=== PATIENT | male | born 1940 | race Caucasian/White ===

== ENCOUNTER → 2019-07-31 | Outpatient (CLI) | payer MEDICARE | END | disposition home or self-care (01) | LOC: LABPAT 08:00 | PROVIDERS: ATTEND Internal Medicine Clinical Cardiac Electrophysiology | DX: Z53.9 Procedure and treatment not carried out, unspecified reason (principal) ==

== ENCOUNTER → 2019-07-31 | Outpatient (CLI) | payer MEDICARE | END | disposition home or self-care (01) | CPT/HCPCS: 36415; 80048; 82533; 82550; 83735; 84439; 84443; 84481; 84482; 85025 ==

== ENCOUNTER → 2019-10-06 | Outpatient (CLI) | payer MEDICARE | END | disposition home or self-care (01) | LOC: LABWHC1 12:31 | PROVIDERS: ATTEND Internal Medicine Clinical Cardiac Electrophysiology | DX: Z11.59 Encounter for screening for other viral diseases (principal) | CPT/HCPCS: 87635 ==

== ENCOUNTER 2019-10-11 08:35 | Day surgery (SDC) | payer MEDICARE ==
[2019-10-10 11:07] VITALS: BMI 28.5
[~2019-10-11 08:35] MED LIST: LACTATED RINGERS 1,000 ML IV SCH; SODIUM CHLORIDE 0.9% 1,000 ML IV SCH
[2019-10-11 09:12] LABS: Basophils % (A) 1 %; Eosinophils # (A) 0.1 k/uL (0-0.7); Eosinophils % (A) 1 %; HCT 44.6 % (39.0-53.0); HGB 15.2 gm/dL (13.0-17.5); Lymphocytes # (A) 0.9 k/uL (1.0-4.8); Lymphocytes % (A) 15 %; MCH 32.5 pg (25.0-35.0); MCV 95.6 fL (80.0-100.0); Mean Platelet Volume 7.7; Monocytes # (A) 0.4 k/uL (0-1.0); Monocytes % (A) 7 %; Neutrophils # (A) 4.4 k/uL (1.3-7.7); Neutrophils % (A) 75 %; Platelet Count 195 k/uL (150-450); RBC 4.66 m/uL (4.30-5.90); RDW 12.8 % (11.5-15.5); WBC 5.8 k/uL (3.8-10.6)
[2019-10-11 09:24] LABS: Calcium 9.2 mg/dL (8.4-10.2); Potassium 4.5 mmol/L (3.5-5.1)
[2019-10-11] MEDS ORDERED: HEPARIN SODIUM,PORCINE 10,000 UNIT/ML 1 ML VIAL ONE (10:07)
[2019-10-11] MEDS ORDERED: PHENYLEPHRINE-0.9% NACL SYG 1 MG/10 ML SYRINGE ONE (10:07)
[2019-10-11] MEDS ORDERED: NEOSTIGMINE 1 MG/ML 10 ML VIAL ONE (10:07)
[2019-10-11] MEDS ORDERED: MIDAZOLAM 2 MG/2 ML VIAL ONE (10:07)
[2019-10-11] MEDS ORDERED: ePHEDrine SULFATE/0.9% NACL/PF 50 MG/5 ML SYRINGE IV ONE (10:07)
[2019-10-11] MEDS ORDERED: SUCCINYLCHOLINE CHLORIDE 100 MG/5 ML SYR IV ONE (10:07)
[2019-10-11] MEDS ORDERED: LIDOCAINE 1% INJ 10MG/ML (20 ML MDV) ONE (10:07)
[2019-10-11] MEDS ORDERED: fentaNYL (PF) 50 MCG/ML 2 ML AMP ONE (10:07)
[2019-10-11] MEDS ORDERED: PROPOFOL 10 MG/ML 20 ML VIAL IV ONE (10:07)
[2019-10-11] MEDS ORDERED: PROTAMINE SULFATE 10 MG/ML 5 ML VIAL IV ONE (10:07)
[2019-10-11] MEDS ORDERED: GLYCOPYRROLATE 0.2 MG/ML 2 ML VIAL ONE (10:07)
[2019-10-11] MEDS ORDERED: LIDOCAINE 1% INJ 10MG/ML (20 ML MDV) SQ ONE (11:06)
[2019-10-11] MEDS ORDERED: HEPARIN SOD,PORK IN 0.45% NACL 25,000 UNIT in 0.45% NACL 1 250ML.BAG IV ONE (11:07)
[2019-10-11] MEDS ORDERED: HEPARIN SODIUM (1,000 UNIT/ML) 1,000 UNIT in SODIUM CHLORIDE 0.9% 1,000 ML IRRIGATION ONE (13:39)
[2019-10-11] MEDS ORDERED: LACTATED RINGERS 1,000 ML IV ONE (13:39)
[2019-10-11] MEDS ORDERED: IOPAMIDOL-370 50ML BTL INJ ONE (15:03)
[2019-10-11] MEDS ORDERED: ACETAMINOPHEN IV (For NPO) 1,000 MG in EMPTY BAG 1 BAG IVPB ONE (16:13)
[2019-10-11] MEDS ORDERED: ACETAMINOPHEN TAB 325 MG TAB PO PRN (16:13)
[2019-10-11] MEDS ORDERED: HYDROcodone/APAP 5-325MG 1 EACH TAB PO PRN (16:13)
[2019-10-11] MEDS ORDERED: FUROSEMIDE 20 MG TAB PO PRN (16:17)
--- NOTE | 2019-10-11 16:32 | P.PCN ---
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 Congestive heart failure Result No left atrial appendage mass seen on intracardiac echo Successful pulmonary vein isolation of all veins using cryo-ablation Complete entrance block in all 4 veins confirmed No evidence for phrenic nerve injury Esophageal deflection YES , extreme left-sided esophagus Linear ablation along the roof, linear ablation along the anterior septum with organization of atrial fibrillation Electrical cardioversion with a synchronized shock across the chest YES Successful conversion to sinus rhythm Large left atrium, common left antrum of the left-sided pulmonary veins Procedure details Patient was brought to the EP lab in a fasting state. Written informed consent was obtained prior to the procedure. Procedure performed under general anesthesia After initial muscle relaxant use, muscle relaxants were not given thereafter in order to assess phrenic nerve during procedure. Patient prepped and draped as per protocol Full cryo-set up with standard preparation of the cryoablation tools done. Femoral Venous access obtained on the right and left groins Venous and arterial Sheaths placed. Diagnostic catheters for the high right atrium, phrenic nerve stimulation and pacing, His bundle, RV and coronary sinus placed Intracardiac echo catheter placed. Long sheath placed in the right atrium Left and right transseptal catheterization performed under intracardiac echo evelina dance. Intravenous heparin with aCT above 300 Later, catheter positioning and balloon positioning in the left atrium, under intracardiac echo guidance Diagnostic EP study with mapping Coronary sinus pacing and recording Organization of atrial fibrillation with stepwise ablations Baseline measurements sinus cycle length 605 ms, AR interval 161 ms, QRS 123 ms, QT 397 with Transseptal catheterization performed RA pressure 17/3/8 LA pressure 15/5/10 Transseptal catheterization performed with standard sheath. The cryoablation sheath was then placed with an over the wire exchange without any acute complications. All 4 pulmonary veins were isolated in the following sequence: Left superior followed by left inferior followed by right superior followed by right inferior The cryo-ablation balloon was placed at the os of each vein 1.5 mL of IV dye was injected to confirm an occluded vein Goal during cryoablation was to achieve complete occlusion of the pulmonary vein, achieve -30 degrees C at 30 seconds and achieve -40 degrees C at 60 seconds and a time to effect of less than 60-90 seconds, . If not the balloon was repositioned to obtain this result After completion of Cryoblation with durations from 180-240 seconds, entrance block was confirmed with the Attain circular catheter in a roving fashion around the antrum of the pulmonary veins Phrenic nerve pacing was performed from the SVC, right innominate vein area and diaphragm voltage was monitored. Diaphragmatic contractions were also monitored manually for strength of contraction. Parameter goals for each cryo freeze Complete occlusion of the appropriate vein -30 degrees C by 30 seconds -40 degrees C by 60 seconds Minimum between minus 40-55 degrees C Thaw time greater than 10 seconds Balloon visualized by intracardiac echo The esophagus was intubated. Esophageal Temperature monitoring with a CIRCA catheter formed. Esophageal deflection for hypothermia of the esophagus below 30 degrees C Left superior pulmonary vein, common left-sided antrum with large veins Complete isolation, entrance block Left inferior pulmonary vein, common left-sided antrum with large veins Complete isolation, entrance block Right superior pulmonary vein, during phrenic nerve pacing Complete isolation, entrance block Right inferior pulmonary vein, during phrenic nerve pacing Complete isolation, entrance block At the end of the procedure the Achieve catheter was once again used to check for entrance block Phrenic nerve stimulation was performed to confirm diaphragmatic stimulation the end of the procedure Cine fluoroscopy was performed at the very end of the procedure to confirm movement of both diaphragms with inspiration and expiration Complete isolation of the pulmonary veins was documented first with the achieve catheter and later with electrograms mapping and scar mapping These were large pulmonary veins but were completely isolated Following that the septal RF line was made from the roof down to the inferior the right pulmonary vein at at 6 o'clock position RF ablation was also applied along the antrum of the right sided veins posteriorly Thereafter a roof line was made Complete anatomic integrity of the roof line was confirmed The segment between the isolated pulmonary veins on the right side and septal line was also completely quiescent At the end of the procedure the patient was extubated Heparin was reversed Venous sheaths were removed and hemostasis assured Procedures performed (PVI - followed by linear ablation in the left atrial roof and linear ablation along the septum anteriorly Diagnostic EP study CS pacing and recording Left and right transseptal catheterization Catheter the mapping of the tachycardia (NOT 3D mapping) Intracardiac echocardiography Pulmonary vein isolation with transseptal and comprehensive EPS, [id number] Left atrial roof line, +[id number] Linear ablation, left atrium, along the anterior septum, between the right-sided pulmonary veins and the fossa ovalis +[id number] RF ablation was also applied posteriorly in the duglas between the right-sided pulmonary veins Electrical cardioversion with a synchronized shock across the chest 15901
[2019-10-11] MEDS ORDERED: TAMSULOSIN 0.4 MG CAP.ER.24H PO SCH (21:00)
[2019-10-11] MEDS: APIXABAN 5 MG TAB PO SCH (21:34)
[2019-10-11] MEDS: SACUBITRIL/VALSARTAN 24 MG-26 MG TABLET PO SCH (21:34)
[2019-10-11] MEDS: COLCHICINE 0.6 MG EACH PO SCH (23:00)
[2019-10-12] MEDS ORDERED: LEVOTHYROXINE 112 MCG TAB PO SCH (06:30)
[2019-10-12] MEDS ORDERED: CARVEDILOL 3.125 MG TAB PO SCH (07:30)
[2019-10-12] MEDS: COLCHICINE 0.6 MG EACH PO SCH (08:16)
[2019-10-12] MEDS: SACUBITRIL/VALSARTAN 24 MG-26 MG TABLET PO SCH (08:16)
[2019-10-12] MEDS: APIXABAN 5 MG TAB PO SCH (08:22)
[2019-10-12] MEDS ORDERED: SPIRONOLACTONE 25 MG TAB PO SCH (09:00)
[2019-10-12 12:10] VITALS: BP 95/60; PULSE 70; RESP 16; TEMP 98.5
--- NOTE | 2019-10-12 13:44 | P.DS ---
Providers Attending physician: Kyler Hampton Primary care physician: [facility] Hospital Course: This is a pleasant 79-year-old male past medical history significant for atrial fibrillation, cardiomyopathy and chronic congestive heart failure. He presented to the hospital for an elective A. fib ablation. He underwent successful pulmonary vein isolation using cryoablation, complete entrance block and all 4 veins confirmed and no evidence for phrenic nerve injury. He is seen and examined resting comfortably laying flat in no acute distress he has no symptoms of chest pain, shortness of breath, dizziness or palpitations bilateral groin access sites are clean, dry and intact. There is no evidence of hematoma, bleeding or ecchymosis. Sutures were removed bilaterally. Blood pressure 95/60 heart rate 70 afebrile maintaining oxygen saturation on room air. Throughout hospitalization he has been minimally hypotensive however asymptomatic. We will change his carvedilol to Toprol 50 mg daily. We have advised him to take half a pill in the morning, with plans to increase as he tolerates in the office. Repeat EKG this morning reveals sinus mechanism with no ST abnormalities or evidence of pericarditis. GENERAL: Well-appearing, well-nourished and in no acute distress. NECK: Supple without JVD or thyromegaly. LUNGS: Breath sounds clear to auscultation bilaterally. Respiration equal and unlabored. No wheezes, rales or rhonchi. HEART: Regular rate and rhythm without murmurs, rubs or gallops. S1 and S2 heard. EXTREMITIES: Normal range of motion, no edema. No clubbing or cyanosis. Peripheral pulses intact. Bilateral groins soft, non-tender, no ecchymosis, no hematoma, no bleeding. Sutures removed bilaterally intact. ASSESSMENT Atrial fibrillation status post successful ablation PLAN Discontinue carvedilol. Initiate on Toprol 50 mg in the morning, take half tablet. We will increase in the office at follow-up if he can tolerate. Continue eliquis, aldactone, entresto, lasix as previously ordered. Follow-up the office with Dr. Arenas next week October 19 at 1:30 pm. Nurse Practitioner note has been reviewed, I agree with a documented findings and plan of care. Patient was seen and examined. Plan - Discharge Summary Discharge Rx Participant: No New Discharge Prescriptions: New Metoprolol Succinate (ER) [Toprol XL] 50 mg PO DAILY #90 tab.er.24h Continue Multivitamins, Thera [Multivitamin (formulary)] 1 tab PO DAILY Cetirizine HCl [Zyrtec] 10 mg PO HS Cholecalciferol [Vitamin D3 (25 Mcg = 1000 Iu)] 1,000 unit PO DAILY Apixaban [Eliquis] 5 mg PO BID busPIRone HCL 15 mg PO DAILY Spironolactone [Aldactone] 25 mg PO DAILY Levothyroxine Sodium [Synthroid] 112 mcg PO DAILY Furosemide [Lasix] 20 mg PO DAILY Furosemide [Lasix] 20 mg PO DAILY PRN PRN Reason: SWELLING Sacubitril/Valsartan [Entresto 24 mg-26 mg Tablet] 1 each PO BID Melatonin 10 mg PO HS Cyanocobalamin (Vitamin B-12) [Vitamin B-12] 1,000 mcg PO Q2D Alfuzosin HCl [Alfuzosin HCl ER] 10 mg PO HS Discontinued Carvedilol [Coreg] 3.125 mg PO BID Discharge Medication List Alfuzosin HCl [Alfuzosin HCl ER] 10 mg PO HS 10/10/19 [History] Apixaban [Eliquis] 5 mg PO BID 10/10/19 [History] Cetirizine HCl [Zyrtec] 10 mg PO HS 10/10/19 [History] Cholecalciferol [Vitamin D3 (25 Mcg = 1000 Iu)] 1,000 unit PO DAILY 10/10/19 [History] Cyanocobalamin (Vitamin B-12) [Vitamin B-12] 1,000 mcg PO Q2D 10/10/19 [History] Furosemide [Lasix] 20 mg PO DAILY 10/10/19 [History] Furosemide [Lasix] 20 mg PO DAILY PRN 10/10/19 [History] Levothyroxine Sodium [Synthroid] 112 mcg PO DAILY 10/10/19 [History] Melatonin 10 mg PO HS 10/10/19 [History] Multivitamins, Thera [Multivitamin (formulary)] 1 tab PO DAILY 10/10/19 [History] Sacubitril/Valsartan [Entresto 24 mg-26 mg Tablet] 1 each PO BID 10/10/19 [History] Spironolactone [Aldactone] 25 mg PO DAILY 10/10/19 [History] busPIRone HCL 15 mg PO DAILY 10/10/19 [History] Metoprolol Succinate (ER) [Toprol XL] 50 mg PO DAILY #90 tab.er.24h 10/12/19 [Rx] Follow up Appointment(s)/Referral(s): Kyler Hampton MD [STAFF PHYSICIAN] - 1 Week Patient Instructions/Handouts: *Surgery [facility] - After Heart Catheterization - [employer] Instructions, Metoprolol (By mouth), Cardiac Ablation (DC) Activity/Diet/Wound Care/Special Instructions: Okay to have MRI on Wednesday of this week per Alicia Valle NP (cardiology)
[2019-10-13] MEDS ORDERED: METOPROLOL SUCCINATE (ER) 50 MG TAB.ER.24H PO SCH (09:00)
== END 2019-10-12 14:06 | disposition home or self-care (01) ==
LOC: CATHEP 08:35 → 5NMEDONC 15:08 → CATHEP 10-12 14:06
PROVIDERS: ATTEND Internal Medicine Clinical Cardiac Electrophysiology
DX: I48.19 Other persistent atrial fibrillation (principal); I42.8 Other cardiomyopathies; I50.9 Heart failure, unspecified; I95.9 Hypotension, unspecified; G47.33 Obstructive sleep apnea (adult) (pediatric); Z99.89 Dependence on other enabling machines and devices; I73.9 Peripheral vascular disease, unspecified; Z82.49 Family history of ischemic heart disease and other diseases of the circulatory system; Z79.01 Long term (current) use of anticoagulants; Z79.890 Hormone replacement therapy; Z79.899 Other long term (current) drug therapy
CPT/HCPCS: 93005; 85347; 93662; 93609; 93656; 93657; 80048; 85025; C1769 ×4; C1894 ×2; C1730; C1893; C1733; C1766; C1732; J2250; J2720; J1644 ×3; J2710; J2001; J3010; J2370; J0330; J2704; Q9967; 93613

== ENCOUNTER → 2023-03-26 | Outpatient (CLI) | payer MEDICARE ==
[2023-03-26 11:14] LABS: ALT 27 U/L (4-49); AST 27 U/L (17-59); African American GFR (CKD) >90 (>60 ml/min/1.73 sqM); Albumin 4.6 g/dL (3.5-5.0); Albumin/Globulin Ratio 1.5; Alkaline Phosphatase 79 U/L (38-126); Anion Gap 8 mmol/L; Blood Urea Nitrogen 20 mg/dL (9-20); Calcium 9.8 mg/dL (8.4-10.2); Carbon Dioxide 28 mmol/L (22-30); Chloride 102 mmol/L (98-107); Glucose 99 mg/dL (74-99); Non-African American GFR(CKD) 82 (>60 ml/min/1.73 sqM); Partial Thromboplastin Time 28.3 sec (22.0-30.0); Prothrombin Time 11.1 sec (10.0-12.5); Sodium 138 mmol/L (137-145); Total Bilirubin 0.9 mg/dL (0.2-1.3); Total Protein 7.6 g/dL (6.3-8.2)
[2023-03-26 11:23] LABS: NT-Pro-B-Type Natriuretic Pept 86 pg/mL
[2023-03-26 16:35] LABS: Appearance,Urine Clear (Clear); Bilirubin,Urine Negative (Negative); Blood,Urine Negative (Negative); Color,Urine Yellow (Yellow); Ketones,Urine Negative (Negative); Nitrite,Urine Negative (Negative); PH, Urine 5.5; Specific Gravity,Urine 1.018 (1.001-1.030); Urobilinogen,Urine 0.2 E.U./DL
[2023-03-26 16:42] LABS: Basophils # (A) 0.05 X 10*3/uL (0.00-0.10); Basophils % (A) 0.8 %; Eosinophils # (A) 0.04 X 10*3/uL (0.04-0.35); Eosinophils % (A) 0.6 %; HCT 44.7 % (39.6-50.0); HGB 14.9 g/dL (13.0-17.0); Lymphocytes # (A) 0.95 X 10*3/uL (0.90-5.00); Lymphocytes % (A) 14.4 %; MCH 31.5 pg (27.0-32.0); MCHC 33.3 g/dL (32.0-37.0); MCV 94.5 FL (80.0-97.0); Mean Platelet Volume 10.5 FL (9.5-12.2); Monocytes # (A) 0.56 X 10*3/uL (0.20-1.00); Monocytes % (A) 8.5 %; NRBC Per 100 WBC 0 X 10*3/uL (0.00-0.01); Neutrophils # (A) 4.96 X 10*3/uL (1.80-7.70); Neutrophils % (A) 75.2 %; Platelet Count 192 X 10*3/uL (140-440); RBC 4.73 X 10*6/uL (4.40-5.60); RDW 12.6 % (11.5-14.5); WBC 6.59 X 10*3/uL (4.50-10.00)
== END | disposition home or self-care (01) ==
LOC: LABPAT 08:44
PROVIDERS: ATTEND Orthopaedic Surgery Sports Medicine
DX: Z01.812 Encounter for preprocedural laboratory examination (principal); M19.012 Primary osteoarthritis, left shoulder
CPT/HCPCS: 80053; 81003; 83735; 83880; 84443; 85025; 85610; 85730; 87070

== ENCOUNTER → 2023-03-26 | Outpatient (CLI) | payer MEDICARE ==
--- NOTE | 2023-03-26 10:43 | XR ---
EXAMINATION TYPE: XR chest 2V DATE OF EXAM: 03/26/2023 10:39 AM COMPARISON: None TECHNIQUE: XR chest 2V Frontal and lateral views of the chest. CLINICAL INDICATION:Male, 82 years old with history of CHF; FINDINGS: Lungs/Pleura: There is no evidence of pleural effusion, focal consolidation, or pneumothorax. Pulmonary vascularity: Unremarkable. Heart/mediastinum: Cardiomediastinal silhouette is prominent in size. Atherosclerotic calcifications are seen in the aorta. Musculoskeletal: Multiple level degenerative disc disease changes seen throughout the spine. IMPRESSION: No acute cardiopulmonary disease/process.
== END | disposition home or self-care (01) ==
LOC: LABWHC1 08:48
PROVIDERS: ATTEND Family Medicine
DX: I48.0 Paroxysmal atrial fibrillation (principal); I50.22 Chronic systolic (congestive) heart failure
CPT/HCPCS: 71046; 86850; 86900; 86901

== ENCOUNTER 2023-04-15 09:34 | Day surgery (SDC) | payer MEDICARE ==
[~2023-04-15 09:34] MED LIST changes: +ACETAMINOPHEN TAB 500 MG TAB PO PRN; +GABAPENTIN 300 MG CAP PO PRN; +HYDROmorphone 0.5 MG/0.5 ML SYRINGE IVP PRN; +MELOXICAM 7.5 MG TAB PO PRN; +ONDANSETRON 4 MG/2 ML VIAL IVP ONE; +ONDANSETRON 4 MG/2 ML VIAL IVP PRN; -SODIUM CHLORIDE 0.9% 1,000 ML IV SCH; +TRANEXAMIC 1,000 MG/100ML-NACL 1,000 MG in SALINE 1 100ML.BAG IVPB PRN
[2023-04-15] MEDS ORDERED: diphenhydrAMINE 25 MG CAP PO PRN (10:39)
[2023-04-15] MEDS ORDERED: ONDANSETRON 4 MG/2 ML VIAL IVP PRN (10:39)
[2023-04-15] MEDS ORDERED: SENNOSIDES-DOCUSATE SODIUM 1 EACH TAB PO PRN (10:39)
[2023-04-15] MEDS ORDERED: HYDROmorphone 0.5 MG/0.5 ML SYRINGE IVP PRN ×3 (10:39)
[2023-04-15] MEDS ORDERED: DEXAMETHASONE SOD PHOSPHATE 4 MG/ML 1 ML VIAL IVP ONE (10:40)
[2023-04-15] MEDS ORDERED: HYDROcodone/APAP 7.5-325MG 1 EACH TAB PO PRN ×2 (10:43)
[2023-04-15] MEDS ORDERED: fentaNYL (PF) 50 MCG/ML 2 ML AMP IVP ONE (10:47)
[2023-04-15] MEDS ORDERED: MIDAZOLAM 2 MG/2 ML VIAL IVP ONE (10:47)
[2023-04-15] MEDS ORDERED: VANCOMYCIN 1,000 MG VIAL MISCELLANE ONE (11:59)
[2023-04-15] MEDS ORDERED: fentaNYL (PF) 50 MCG/ML 2 ML AMP ONE (12:41)
[2023-04-15] MEDS ORDERED: TRANEXAMIC 1,000 MG/100ML-NACL PREMIX BAG ONE (12:41)
[2023-04-15] MEDS ORDERED: ROCURONIUM 10 MG/ML (5 ML VIAL) IV ONE (12:41)
[2023-04-15] MEDS ORDERED: GLYCOPYRROLATE 0.2 MG/ML 2 ML VIAL ONE (12:41)
[2023-04-15] MEDS ORDERED: PROPOFOL 10 MG/ML 20 ML VIAL IV ONE (12:41)
[2023-04-15] MEDS ORDERED: SUCCINYLCHOLINE CHLORIDE 200 MG/10 ML VIAL IV ONE (12:41)
[2023-04-15] MEDS ORDERED: ePHEDrine 50 MG/ML 1 ML VIAL ONE (12:41)
[2023-04-15] MEDS ORDERED: NEOSTIGMINE 1 MG/ML 10 ML VIAL ONE (12:41)
[2023-04-15] MEDS ORDERED: LIDOCAINE 1% INJ 10MG/ML (20 ML MDV) ONE (12:41)
[2023-04-15] MEDS ORDERED: ROPIVACAINE 5 MG/ML 30 ML VIAL ONE (12:41)
--- NOTE | 2023-04-15 13:07 | P.ANPRN ---
Procedure Note - Anesthesia - Nerve Block Performed Left Interscalene Single Time Out Performed: Yes (1046) Date of Procedure: 04/15/23 Procedure Start Time: 10:47 Procedure Stop Time: 10:52 Location of Patient: PreOp Indication: Acute Post-Operative Pain, Requested by Surgeon Specifically requested for management of pain by DrLaura: Lauri Mcdonald Sedation Type: Sedate with meaningful contact maintained Preparation: Sterile Prep Position: Supine Catheter: None Needle Types: Pajunk Needle Gauge: 21 Ultrasound used to visualize needle placement: Yes Ultrasound used to observe medication spread: Yes Injectate: 0.5% Ropivacaine (see comment for volume) (30cc) Blood Aspirated: No Pain Paresthesia on Injection Noted: No Resistance on Injection: Normal Image Stored and Saved: Yes Events: Uneventful and Well Tolerated
[2023-04-15] MEDS ORDERED: ceFAZolin 1,000 MG in SODIUM CHLORIDE 0.9% 1,000 ML IRRIGATION ONE (13:13)
[2023-04-15] MEDS ORDERED: LACTATED RINGERS 1,000 ML IV ONE (14:36)
--- NOTE | 2023-04-15 15:32 | XR ---
Single view left shoulder. DATE: 04/15/2023. COMPARISON: None available. HISTORY: Postop left shoulder. IMPRESSION: Left reverse shoulder arthroplasty is present. There appears to be air within the joint space which i s likely related to the recent surgery. Subacromial spurring and spurring at the acromial clavicular joint is noted.
[2023-04-15] MEDS ORDERED: MELATONIN 5 MG TABLET PO SCH (21:00)
[2023-04-15] MEDS ORDERED: LORATADINE 10 MG TAB PO SCH (21:00)
--- NOTE | 2023-04-15 22:16 | OP ---
OPERATIVE REPORT DATE OF SERVICE : 04/15/2023 ELECTRONIC EQUIPMENT REPAIRER: Alonzo Connelly PA-C. PREOPERATIVE DIAGNOSIS: Left shoulder advanced rotator cuff arthrosis. POSTOPERATIVE DIAGNOSIS: Left shoulder advanced rotator cuff arthrosis. PROCEDURE PERFORMED: Left reverse total shoulder arthroplasty. ANESTHESIA: General endotracheal. ESTIMATED BLOOD LOSS: 100 mL. DRAINS: None. COMPLICATIONS: None apparent. DISPOSITION: Postanesthesia care unit. INDICATIONS: Mr. Gabriel is a pleasant 82-year-old male with longstanding history of left shoulder pain. Workup including x-rays and CT scan revealed advanced rotator cuff arthropathy of the left shoulder. At this point, it is felt that he has failed conservative management. He would like to proceed with operative intervention. The risks of procedure were discussed with him in detail. These risks include, but are not limited to, risk of infection, nerve damage, bleeding, pain, instability in the shoulder, loosening of the implants, and deep infection. There is also small risk of deep vein thrombosis, which could lead to fatal pulmonary embolism. The patient understood these risks. All of his questions with regard to the risks of procedure were answered to his satisfaction. An appropriate informed consent was obtained. DESCRIPTION OF PROCEDURE: The patient was identified in preoperative holding area. Surgical site was marked by both the patient and myself. He was given 2 g of Ancef IV for prophylactic purposes. He was then transported to the operative suite, placed supine on the operating room table. General anesthetic was then administered and dosed per the anesthesia department without apparent complication. An examination under anesthesia was then performed of the left shoulder. Elevation was to 90 degrees. External rotation at the side was to 20 degrees. The patient was then placed in the beach chair position, well-padded in preparation for surgery. Great care was taken to ensure that his neck was in neutral alignment, well- padded and maintained that way throughout the operative procedure. Great care was also taken to ensure that his legs were appropriately padded as well. The patient's left upper extremity was then prepped and draped in the usual sterile fashion. Standard surgical pause was undertaken to ensure that appropriate preoperative antibiotics were given and that we were operating the correct site. All staff in room were in agreement, and we proceeded. The acromion AC joint clavicle and coracoid were marked with a surgical pen. A planned incision starting at the level of clavicle and extending distally over the deltopectoral interval approximately 1 cm lateral to the coracoid was marked with a surgical pen. The incision was then made with a 10-blade scalpel. Dissection was carried down sharply to the deltoid fascia. The deltopectoral interval was then identified at the level of clavicle. A small band retractor was then placed onto the proximal deltoid. I then released the deltoid fascia on the lateral aspect of the cephalic vein. The vein was preserved and left in its bed medially. The cephalic vein was protected throughout the entire case. I then identified the clavipectoral fascia. This was incised proximally to the level of the coracoacromial ligament. The coracoacromial ligament was then left intact. I then used my finger to spread the interval between the conjoint tendon and the subscapularis. I felt for the axillary nerve, which was readily palpable. Then cleared the subacromial and subdeltoid spaces of bursal and scar tissue. I then utilized a brown retractor to hold the deltoid and expose the humeral head. I then proceeded to release the subscapularis in the anterior inferior shoulder capsule. The rotator cuff was inspected. His entire greater tuberosity and lesser tuberosity were devoid of rotator cuff attachment. I then released the capsule, where the rotator interval would be. This was released to the base of the coracoid and then out laterally. The capsule was then released and extended distally in a lazy-S fashion approximately 1 cm medial to the biceps tendon. I then continued to release the capsule along the inferior neck in a vertical fashion. This was done approximately at the 6 o'clock position. Great care was taken to ensure that the capsule was always visualized as it was released as to avoid injuring the axillary nerve. I then brought the Pappas corn detasseler machine operator with the arm externally rotated and abducted. I continued to release the capsule inferomedially to approximately the 4 o'clock position. The inferior osteophytes were then removed as well. This was done with a rongeur. I then proceeded with preparation of proper proximal humerus. I removed all the goat's singleton osteophytes. I then removed the subchondral plate from the superior aspect of the humeral head utilizing a large rongeur. I then used a starting reamer to gain access to the humeral canal. This was approximately 1 cm medial to the prior rotator cuff insertion 1 cm posterior to the bicipital groove. I then prepared the humeral canal with hand reaming. We started with a 6 mm reamer and incrementally increased until firm resistance was encountered at 14 mm. The reamer handle was then left in place. I then utilized a humeral resection guide. This was at 30 degrees of retrotorsion. The cutting block was then set approximately 1 mm above the prior rotator cuff insertion. I then proceeded to osteotomize the humeral head utilizing the oscillating saw. I removed the resection guide and then completed the osteotomy. I then proceeded with trial stem placement. The trial size 14 was then broached in the canal starting with an 8 mm broach and incrementally increasing up to the 14 mm broach. The 14 mm trial stem was then left in place. I then made a decision to proceed with a reverse shoulder arthroplasty due to the immense lack of rotator cuff. At this point, I did release the biceps tendon. This tenotomized at the level of superior labrum. I then utilized a bone hook to pull the humerus out laterally. I then inspected the joint for any loose bodies. The Bhattman retractor was then placed onto the posterior glenoid rim. The arm was then placed approximately 80 degrees of abduction and in slight flexion on the Pappas stand. I then proceeded to remove the hypertrophic labrum to definitively identify the actual glenoid. I then utilized the mini plate guide. Starting pin was then placed in the center of the glenoid at approximately 10 degrees of inferior tilt. He had some moderate posterior retroversion of the glenoid. Great care was then taken to ensure that the starting pin was placed down the center of the glenoid. I then proceeded to ream the glenoid with a mini base plate reamer. I did preferentially take more anterior glenoid. Minimal reaming was done as possible to preserve as much subchondral bone as possible with the reaming. After the glenoid was reamed, I did remove the peripheral osteophytes around the glenoid utilizing a rongeur. I then utilized a small offset base cut. I did use the medium offset base plate guide. This seemed to fit very nicely. I then had the quality control representative open a Biomet mini base plate with a medium posterior offset. This was then impacted onto the real glenoid. The starting pin was then removed. I then measured the length and a 30 mm central screw was placed. The screw had an excellent purchase in bone. I was able to rotate the scapula through the screwdriver when the screw was firmly seated. I then proceeded to place the peripheral locking screws. The inferior screw was 25 mm. The anterior screw was 20 mm and the posterior screw was 15 mm. All 3 of the screws had excellent purchase and bone were firmly seated into the base plate. I then had the quality control representative open a 36 mm glenosphere. A slightly offset it inferiorly. The Leon taper was then dried and the real glenosphere was impacted onto the real base plate. I then proceeded with trial. I placed a standard tray and a standard poly trial. It was a mildly difficult reduction. It was very stable. There was no impingement noted. I took it through full range of motion with no impingement noted. I then carefully redislocated the shoulder. I made incision proceeded with standard tray and standard polyethylene. I then had the quality control representative open a Biomet mini 14 mm stem, a standard tray and standard polyethylene for 36 mm glenosphere. The real stem was then impacted into the proximal humerus in approximately 30 degrees of retrotorsion. The Leon taper was dried in the tray and polyethylene were then impacted onto the dried Leon taper. At this point, the wound was thoroughly irrigated with sterile saline solution antibiotic added. This was done via pulse lavage. I then placed IrriSept antiseptic solution, which was allowed to sit for a few minutes. The shoulder was then reduced. Again, it was a mildly difficult reduction. It was very stable. The conjoint tendon did not have any undue tension. I felt for the axillary nerve at this point appears readily palpable and intact. At this point, we proceeded with closure. Again, the wound was thoroughly irrigated with sterile saline solution with antibiotic added via pulse lavage. I then used the remaining IrriSept solution for a few minutes. Approximately 500 mg of vancomycin powder was then placed deep. The deltopectoral interval was then closed with 0 Vicryl interrupted suture. The subcutaneous tissue was irrigated again with sterile saline solution and antibiotic added. The remaining 500 mg of vancomycin powder was then placed subcutaneously. The subcutaneous tissue was then closed with 2-0 Vicryl interrupted suture and the skin was closed with a running 3- 0 Quill suture. Dermabond was applied to the incision. Sterile compressive dressing was then applied. The patient's left upper extremity was then placed into a standard sling. All sponge and needle counts were deemed correct prior to closure. The patient tolerated the procedure without apparent complication. He was transferred to recovery room in stable condition. FRANCISCO / JASN: [id number] /
[2023-04-15] MEDS: SACUBITRIL/VALSARTAN 24 MG-26 MG TABLET PO SCH (22:22)
[2023-04-15] MEDS: carvediloL 3.125 MG TAB PO SCH (22:23)
[2023-04-15] MEDS: LACTATED RINGERS 1,000 ML IV SCH (23:30)
[2023-04-16 01:34] VITALS: RESP 18
[2023-04-16] MEDS: LACTATED RINGERS 1,000 ML IV SCH (05:49)
[2023-04-16] MEDS ORDERED: LEVOTHYROXINE 112 MCG TAB PO SCH (06:30)
[2023-04-16 08:31] VITALS: BP 97/61; PULSE 59; TEMP 98.3
[2023-04-16] MEDS ORDERED: CHOLECALCIFEROL 25 MCG (1000 IU) TABLET PO SCH (09:00)
[2023-04-16] MEDS ORDERED: SPIRONOLACTONE 25 MG TAB PO SCH (09:00)
[2023-04-16] MEDS ORDERED: MULTIVITAMINS, THERA 1 EACH TAB PO SCH (09:00)
[2023-04-16] MEDS ORDERED: CYANOCOBALAMIN 500 MCG TAB PO SCH (09:00)
[2023-04-16] MEDS ORDERED: busPIRone HCl 5 MG TAB PO SCH (09:00)
[2023-04-16] MEDS: SACUBITRIL/VALSARTAN 24 MG-26 MG TABLET PO SCH (09:29)
[2023-04-16] MEDS: carvediloL 3.125 MG TAB PO SCH (09:30)
[2023-04-16 10:53] LABS: Basophils # (A) 0.02 X 10*3/uL (0.00-0.10); Basophils % (A) 0.2 %; Eosinophils # (A) 0 X 10*3/uL (0.04-0.35); Eosinophils % (A) 0 %; HGB 11.5 g/dL (13.0-17.0); Lymphocytes # (A) 0.76 X 10*3/uL (0.90-5.00); Lymphocytes % (A) 9.3 %; MCH 31.8 pg (27.0-32.0); MCHC 33.8 g/dL (32.0-37.0); MCV 93.9 FL (80.0-97.0); Mean Platelet Volume 10.7 FL (9.5-12.2); Monocytes # (A) 0.99 X 10*3/uL (0.20-1.00); Monocytes % (A) 12.1 %; NRBC Per 100 WBC 0 X 10*3/uL (0.00-0.01); Neutrophils # (A) 6.42 X 10*3/uL (1.80-7.70); Neutrophils % (A) 78.2 %; Platelet Count 149 X 10*3/uL (140-440); RBC 3.62 X 10*6/uL (4.40-5.60); RDW 12.5 % (11.5-14.5); WBC 8.21 X 10*3/uL (4.50-10.00)
[2023-04-16 11:02] LABS: Blood Urea Nitrogen 17.1 mg/dL (9.0-27.0); Calcium 8.6 mg/dL (8.7-10.3); Carbon Dioxide 21.8 mmol/L (21.6-31.8); Chloride 106 mmol/L (96-109); Glucose 104 mg/dL (70-110); Potassium 4.2 mmol/L (3.5-5.5); Sodium 137 mmol/L (135-145)
--- NOTE | 2023-04-16 11:49 | P.CONS ---
History of Present Illness - Reason for Consult Consult date: 04/16/23 - Chief Complaint Status post surgery - History of Present Illness * 82-year-old gentleman with past medical history significant for atrial fibrillation, chronic congestive heart failure systolic dysfunction, was admitted for elective left total shoulder reverse arthroplasty. * Patient is seen postoperative day 1 for medical management, patient does have significant cardiac history. * Postprocedure vitals reviewed systolic blood pressure 102/61 with a heart rate of 56, patient remains on room air * Follow-up CBC and basic metabolic panel ordered * Prior to admission patient has been on aspirin and Eliquis which postprocedure has been on hold, will be resumed once cleared by surgery team * Postprocedure x-ray left shoulder obtained which showed left reverse shoulder arthroplasty present REVIEW OF SYSTEMS: Left shoulder discomfort resolved CONSTITUTIONAL: No fever, no malaise, no fatigue. HEENT: No recent visual problems or hearing problems. Denied any sore throat. CARDIOVASCULAR: No chest pain, orthopnea, PND, no palpitations, no syncope. PULMONARY: No shortness of breath, no cough, no hemoptysis. GASTROINTESTINAL: No diarrhea, no nausea, no vomiting, no abdominal pain. NEUROLOGICAL: No headaches, no weakness, no numbness. HEMATOLOGICAL: Denies any bleeding or petechiae. GENITOURINARY: Denies any burning micturition, frequency, or urgency. MUSCULOSKELETAL/RHEUMATOLOGICAL: Denies any joint pain, swelling, or any muscle pain. ENDOCRINE: Denies any polyuria or polydipsia. PHYSICAL EXAMINATION: GENERAL: The patient is alert and oriented x3, not in any acute distress. HEENT: Pupils are round and equally reacting to light. EOMI. CARDIOVASCULAR: S1 and S2 present. No murmurs, rubs, or gallops. PULMONARY: Chest is clear to auscultation, no wheezing or crackles. ABDOMEN: Soft, nontender, nondistended, normoactive bowel sounds. No palpable organomegaly. MUSCULOSKELETAL: Left shoulder bandage, range of motion limited by left arm in brace EXTREMITIES: No cyanosis, clubbing, or pedal edema. NEUROLOGICAL: Gross neurological examination did not reveal any focal deficits. Past Medical History Past Medical History: Atrial Fibrillation, Heart Failure, CVA/TIA, Hypertension, Prostate Disorder, Sleep Apnea/CPAP/BIPAP, Thyroid Disorder Additional Past Medical History / Comment(s): CENTRAL SLEEP APNEA-USES respirator no residual from cva/tia History of Any Multi-Drug Resistant Organisms: None Reported Past Surgical History: Hernia Repair, Orthopedic Surgery Additional Past Surgical History / Comment(s): ORIF LT WRIST thumb repair after crush injury hernia repairs x3. COLONOSCOPY. CARDIOVERSION Past Anesthesia/Blood Transfusion Reactions: No Reported Reaction Past Psychological History: Anxiety Smoking Status: Never smoker Past Alcohol Use History: Rare Past Drug Use History: None Reported - Past Family History Mother Family Medical History: No Reported History Medications and Allergies Home Medications Medication Instructions Recorded Confirmed Type Alfuzosin HCl [Alfuzosin HCl ER] 10 mg PO HS 10/10/19 04/15/23 History Apixaban [Eliquis] 5 mg PO BID 10/10/19 04/15/23 History Cetirizine HCl [Zyrtec] 10 mg PO HS 10/10/19 04/15/23 History Cholecalciferol [Vitamin D3 (25 1,000 unit PO DAILY 10/10/19 04/15/23 History Mcg = 1000 Iu)] Cyanocobalamin (Vitamin B-12) 1,000 mcg PO Q2D 10/10/19 04/15/23 History [Vitamin B-12] Levothyroxine Sodium [Synthroid] 112 mcg PO DAILY 10/10/19 04/15/23 History Melatonin [Melatonin ER] 10 mg PO HS 10/10/19 04/15/23 History Multivitamins, Thera [Multivitamin 1 tab PO DAILY 10/10/19 04/15/23 History (formulary)] Sacubitril/Valsartan [Entresto 24 1 each PO BID 10/10/19 04/15/23 History mg-26 mg Tablet] Spironolactone [Aldactone] 25 mg PO DAILY 10/10/19 04/15/23 History busPIRone HCL 15 mg PO DAILY 10/10/19 04/15/23 History Aspirin [Adult Low Dose Aspirin EC] 81 mg PO DAILY 04/07/23 04/15/23 History carvediloL [Coreg] 3.125 mg PO BID 04/07/23 04/15/23 History Docusate [Colace] 100 mg PO BID #60 capsule 04/15/23 Rx Doxycycline Hyclate 100 mg PO BID #10 tab 04/15/23 Rx Ondansetron [Zofran] 4 mg PO Q8HR PRN #21 tab 04/15/23 Rx Allergies Allergy/AdvReac Type Severity Reaction Status Date / Time caffeine AdvReac Diarrhea Verified 04/15/23 10:08 Physical Exam Vitals: Vital Signs Temp Pulse Resp BP Pulse Ox 04/16/23 07:13 98.3 F 59 L 18 97/61 95 04/16/23 00:55 97.9 F 56 L 18 102/61 92 L 04/15/23 21:35 20 04/15/23 19:55 97.7 F 103 H 19 114/77 95 04/15/23 17:40 96.1 F L 64 20 126/75 97 04/15/23 17:02 75 16 121/72 92 L 04/15/23 16:32 84 16 129/83 93 L 04/15/23 16:02 63 16 123/76 94 L 04/15/23 15:47 71 16 121/77 93 L 04/15/23 15:32 67 16 123/70 92 L 04/15/23 15:17 74 16 129/71 94 L 04/15/23 15:02 64 16 132/79 99 04/15/23 14:47 97 F L 68 16 124/71 98 04/15/23 10:59 51 L 16 105/69 96 04/15/23 10:07 97.4 F L 62 16 129/76 99 Intake and Output 04/15/23 04/16/23 04/16/23 22:59 06:59 14:59 Intake Total 200 Balance 200 Intake: IV 200 Other: Voiding Method Toilet Urinal # Voids 1 1 Weight 89.4 kg Results CBC & Chem 7: 04/16/23 06:43 04/16/23 06:43 Assessment and Plan Assessment: Assessment and plan * Status post left shoulder reverse arthroplasty postoperative day 1 * Chronic congestive heart failure systolic dysfunction not in exacerbation * History of atrial fibrillation chronic anticoagulation * 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
[2023-04-16] MEDS ORDERED: APIXABAN 5 MG TAB PO SCH (12:00)
--- NOTE | 2023-04-16 13:48 | P.DS ---
Providers Expected date of discharge: 04/16/23 Attending physician: Lauri Mcdonald Consults: 04/15/23 10:39 Consult Physician Routine Consulting Provider: James Solo Consult Reason/Comments: post op medical management Do you want consulting provider notified?: Yes Primary care physician: Bessie Ledezmao - Discharge Diagnosis(es) (1) Primary osteoarthritis, left shoulder Patient was admitted to the OR on 04/15/23 to undergo a reverse left total shoulder arthroplasty. He had failed conservative measures as an outpatient and desired to proceed with elective surgery after given informed consent. He underwent the above procedure which he tolerated well without complication. Postoperative hospital course has remained without complication. On day of discharge he is afebrile, vital signs stable, labs within acceptable ranges, tolerating by mouth meds and diet, voiding without difficulty, positive flatus, denies abdominal pain or calf pain, pain is controlled on oral pain medication and has no new complaints. Wound is benign, neurovascular status is intact, calves are soft and nontender, abdomen soft and nontender. Review of systems is negative for numbness, tingling, fever, chills, chest pain, shortness of breath, nausea, vomiting, dizziness, headaches, slurred speech or other. Current Visit: Yes Status: Acute Priority: Medium Procedures: Left reverse TSA Patient Condition at Discharge: Good Plan - Discharge Summary Discharge Rx Participant: No New Discharge Prescriptions: New Doxycycline Hyclate 100 mg PO BID #10 tab Docusate [Colace] 100 mg PO BID #60 capsule Ondansetron [Zofran] 4 mg PO Q8HR PRN #21 tab PRN Reason: Nausea HYDROcodone/APAP 7.5-325MG [[place] 7.5-325] 1 - 2 each PO Q6HR PRN #42 tab PRN Reason: Pain No Action Multivitamins, Thera [Multivitamin (formulary)] 1 tab PO DAILY Cetirizine HCl [Zyrtec] 10 mg PO HS Cholecalciferol [Vitamin D3 (25 Mcg = 1000 Iu)] 1,000 unit PO DAILY Apixaban [Eliquis] 5 mg PO BID busPIRone HCL 15 mg PO DAILY Spironolactone [Aldactone] 25 mg PO DAILY Levothyroxine Sodium [Synthroid] 112 mcg PO DAILY Sacubitril/Valsartan [Entresto 24 mg-26 mg Tablet] 1 each PO BID Melatonin [Melatonin ER] 10 mg PO HS Cyanocobalamin (Vitamin B-12) [Vitamin B-12] 1,000 mcg PO Q2D Alfuzosin HCl [Alfuzosin HCl ER] 10 mg PO HS carvediloL [Coreg] 3.125 mg PO BID Aspirin [Adult Low Dose Aspirin EC] 81 mg PO DAILY Discharge Medication List Alfuzosin HCl [Alfuzosin HCl ER] 10 mg PO HS 10/10/19 [History] Apixaban [Eliquis] 5 mg PO BID 10/10/19 [History] Cetirizine HCl [Zyrtec] 10 mg PO HS 10/10/19 [History] Cholecalciferol [Vitamin D3 (25 Mcg = 1000 Iu)] 1,000 unit PO DAILY 10/10/19 [History] Cyanocobalamin (Vitamin B-12) [Vitamin B-12] 1,000 mcg PO Q2D 10/10/19 [History] Levothyroxine Sodium [Synthroid] 112 mcg PO DAILY 10/10/19 [History] Melatonin [Melatonin ER] 10 mg PO HS 10/10/19 [History] Multivitamins, Thera [Multivitamin (formulary)] 1 tab PO DAILY 10/10/19 [History] Sacubitril/Valsartan [Entresto 24 mg-26 mg Tablet] 1 each PO BID 10/10/19 [History] Spironolactone [Aldactone] 25 mg PO DAILY 10/10/19 [History] busPIRone HCL 15 mg PO DAILY 10/10/19 [History] Aspirin [Adult Low Dose Aspirin EC] 81 mg PO DAILY 04/07/23 [History] carvediloL [Coreg] 3.125 mg PO BID 04/07/23 [History] Docusate [Colace] 100 mg PO BID #60 capsule 04/15/23 [Rx] Doxycycline Hyclate 100 mg PO BID #10 tab 04/15/23 [Rx] Ondansetron [Zofran] 4 mg PO Q8HR PRN #21 tab 04/15/23 [Rx] HYDROcodone/APAP 7.5-325MG [[place] 7.5-325] 1 - 2 each PO Q6HR PRN #42 tab 04/16/23 [Rx] Follow up Appointment(s)/Referral(s): Lauri Mcdonald MD [STAFF PHYSICIAN] - 10 Days Activity/Diet/Wound Care/Special Instructions: non weightbearing maintain sling keep wound clean and dry may shower in 3 days if no bleeding f/u in office take meds as directed Discharge Disposition: HOME SELF-CARE
[2023-04-16] MEDS ORDERED: TAMSULOSIN 0.4 MG CAP.ER.24H PO SCH (21:00)
== END 2023-04-16 13:57 | disposition home or self-care (01) ==
LOC: OR 09:34 → 4SSUR 14:41 → OR 04-16 13:57
PROVIDERS: ATTEND Orthopaedic Surgery Sports Medicine
DX: M19.012 Primary osteoarthritis, left shoulder (principal); G89.18 Other acute postprocedural pain; I11.0 Hypertensive heart disease with heart failure; I48.91 Unspecified atrial fibrillation; G47.33 Obstructive sleep apnea (adult) (pediatric); E03.9 Hypothyroidism, unspecified; I63.9 Cerebral infarction, unspecified; F41.9 Anxiety disorder, unspecified; Z79.890 Hormone replacement therapy; Z79.01 Long term (current) use of anticoagulants; Z79.899 Other long term (current) drug therapy; Z88.6 Allergy status to analgesic agent
CPT/HCPCS: 86900; 86901; 80048; 85025; 86850; 73020; 23472; 64415; J2250; J3370; J1100; J0690 ×3; J2405; J3010